=== PATIENT | male | born 1965 | race Two or more races ===

== ENCOUNTER 2019-03-17 14:18 | Emergency (ER) | payer SELFPAY ==
[~2019-03-17] VITALS: Ht 175.3 cm; Wt 88.0 kg
--- NOTE | 2019-03-17 15:05 | NUR ---
CAME IN FOR MIDSTERNAL CHEST PAIN SINCE YESYERDAY. WENT TO URGENT CARE AND ADVISED TO GO TO EMERGENCY DEPT, TO ER BED 4, HOOKED TO MARKETING BUDGET ANALYST, CHANGED TO GOWN, PROVIDED W WARM BLANKET, PT AOX4 , NOT IN DISTRESS, AWAITING MD GILMORE
--- NOTE | 2019-03-17 15:18 | NUR ---
PERLA KEVIN AT BEDSIDE
[2019-03-17 15:40] LABS: BASOPHILS % (AUTO) 0.4 % (0.0-2.0); EOSINOPHILS % (AUTO) 0.2 % (0.0-6.0); HEMATOCRIT 44 % (39-51); HEMOGLOBIN 14.5 g/dL (13.5-17.5); LYMPHOCYTES # (AUTO) 2.4 /CMM (0.8-4.8); LYMPHOCYTES % (AUTO) 24.6 % (20.0-44.0); MEAN CORPUSCULAR HGB CONC 33 g/dl (31.0-36.0); MEAN CORPUSCULAR VOLUME 84 fL (80-96); MONOCYTES # (AUTO) 0.7 /CMM (0.1-1.30); MONOCYTES % (AUTO) 6.6 % (2.0-12.0); NEUTROPHILS # (AUTO) 6.7 /CMM (1.8-8.9); NEUTROPHILS % (AUTO) 68.2 % (43.0-81.0); PLATELET COUNT (AUTO) 278 /CMM (150-450); RED BLOOD CELL COUNT(AUTO) 5.24 MIL/uL (4.5-6.0); WHITE BLOOD COUNT (AUTO) 9.9 K/uL (4.3-11.0)
[2019-03-17 15:46] LABS: POTASSIUM 3.7 mmol/L (3.5-5.1)
--- NOTE | 2019-03-17 15:59 | NUR ---
TROPONIN [phone]
[2019-03-17] MEDS ORDERED: ASPIRIN 325 MG TABLET PO ONE (16:30)
[2019-03-17] MEDS ORDERED: HEPARIN SODIUM, PORCINE 5000 UNITS/1 ML VIAL ONE ×2 (16:45→17:17)
[2019-03-17] MEDS ORDERED: ASPIRIN 325 MG TABLET ONE (16:46)
[2019-03-17] MEDS ORDERED: NITROGLYCERIN PACKET 1 GM PACKET ONE (16:46)
[2019-03-17] MEDS ORDERED: CLOPIDOGREL BISULFATE 75 MG TABLET ONE (16:46)
[2019-03-17] MEDS ORDERED: HEPARIN INFUSION/D5W 500 ML IV ONE ×2 (16:56→17:30)
[2019-03-17] MEDS ORDERED: CLOPIDOGREL BISULFATE 75 MG TABLET PO ONE (17:00)
[2019-03-17] MEDS ORDERED: NITROGLYCERIN PACKET 1 GM PACKET TD ONE (17:00)
[2019-03-17] MEDS ORDERED: HEPARIN SODIUM, PORCINE 5000 UNITS/1 ML VIAL IV ONE ×3 (17:00→18:00)
--- NOTE | 2019-03-17 17:03 | NUR ---
ADDENDUM: Intravenous End Time Documentation: Heparin Infusion (25,000/D5W 500 ml) start time: 1703 pm end time: 2000 pm; infusing while transfer to another facility site: LAC # [id number]; port # 1
--- NOTE | 2019-03-17 17:20 | NUR ---
US TECH AT BEDSIDE FOR 2D ECHO
[2019-03-17 18:38] VITALS: BP 178/99
--- NOTE | 2019-03-17 18:41 | NUR ---
REPORT GIVEN TO MAYRA MONTERROSO RN OF [facility] CCT COORDINATOR
--- NOTE | 2019-03-17 18:50 | NUR ---
Patient discharged to [facility] AT BEDSIDE. Written and verbal after care instructions given. PATIENT AND FAMILY verbalizes understanding of instruction. PT WILL BE TRANSFERRED TO [facility].
== END 2019-03-17 19:00 | disposition short-term general hospital (02) ==
LOC: ER 14:27
DX: I21.9 Acute myocardial infarction, unspecified (principal)
CPT/HCPCS: 36415; 71045; 80048; 84484 ×2; 85025; 85730; 87081; 93005 ×2; 93307; 96365; 96366; 99291; J1644 ×3